=== PATIENT | female | born 1955 | race Caucasian/White ===

== ENCOUNTER → 2019-11-29 | Outpatient (CLI) | payer OTHER ==
[~2019-11-29] VITALS: Ht 172.7 cm; Wt 79.4 kg
[~2019-11-29] MED LIST: ADIPEX-P37.5 MG PO; CLIMARA1 EAC3 TRANSDERM; DYAZIDE 37.5-21 EACH PO; FIORINAL 50-321 EACH PO; FLONASE 0.05%50 MCG NARES; MOMETASONE FURO30 ML OTIC; OXYCONTIN40 MG PO; PROAIR HFA8.5 GM INH; PROTONIX40 M2 PO; SYNTHROID150 MCG PO
--- NOTE | 2019-11-30 10:13 | P ---
[facility] [place] [address] PROCEDURE REPORT Name: RAGHAV BARLOW Room #: REG [facility]#: [id number] Admission: 11/29/19 Attend Phys: Juan Ramon Rayo MD Discharge: Date of : 53 Report #: [id number] THIS REPORT FOR: //name// CC: Juan Ramon Ellis MD DATE OF SERVICE: 11/29/2019 BRIEF HISTORY: The patient is a 64-year-old woman for average risk screening colonoscopy. Last colonoscopy was about 12 years ago per her report. PREOPERATIVE DIAGNOSIS: Average risk screening colonoscopy. POSTOPERATIVE DIAGNOSES: 1. Colon polyps x 3. 2. Moderate sigmoid diverticulosis coli. 3. Small internal hemorrhoids. MEDICATIONS: Deep sedation with propofol per anesthesia. SPECIMENS: 1. Colon polyps x 2, mid transverse colon. 2. Polyp, distal transverse colon. ESTIMATED BLOOD LOSS: 3 mL. PROCEDURE: Colonoscopy to cecum and terminal ileum with snare polypectomy and biopsy. FINDINGS: Prior to propofol sedation, procedure of colonoscopy discussed with the patient as well as potential risks and its complications. She indicates she understands and desires to proceed. DESCRIPTION OF PROCEDURE: With the patient in left lateral decubitus position, digital examination was completed, which revealed no abnormalities. Subsequently, the Olympus video colonoscope was introduced in the rectum, advanced under direct vision to the cecum. Done with minimal difficulty. Cecum was identified by the ileocecal valve and the appendiceal orifice. I was able to visualize the distal segment of terminal ileum, which was inspected and noted to be unremarkable. At that point, the scope was slowly withdrawn and careful circumferential views are obtained. It is noted the patient does have chronic constipation, which has been a long-term stable problem. There were some limitations of prep; however, we were able to vigorously irrigate and suction and overall a good prep was obtained. As we withdrew the scope, the lumen of the colon, in particular proximally was diffusely dilated; however, no [facility] [address] [place] [address] PROCEDURE REPORT Name: ZEINAJESSIENOELLERAGHAV Miriam Room #: REG [facility].#: [id number] Admission: 11/29/19 Attend Phys: Juan Ramon Rayo MD Discharge: Date of : 53 Report #: [id number] obstructing lesions or strictures were seen. The dilation was consistent with chronic constipation. As we withdrew the scope, the mucosa was within normal limits, normal vascular pattern, normal light reflex. No abnormalities were noted until the mid transverse colon was reached, at which point a 5 mm flat polyp was seen and removed by cold snare polypectomy. At the same vicinity, a diminutive polyp was seen and removed with biopsy forceps. We withdrew the scope further and in the distal transverse colon, a diminutive polyp was seen and removed with biopsy forceps. Scope was further withdrawn and no additional neoplastic lesions were seen. The mucosa remained normal throughout the remainder of the exam. In the sigmoid colon, there was moderately severe diverticular disease without endoscopic evidence of diverticulitis. Scope was withdrawn in the rectum. Upon retroflexion, small hemorrhoids were seen. Scope was withdrawn. The patient tolerated the procedure well. CONDITION OF THE PATIENT UPON DISCHARGE: Following procedure, the patient drowsy, aroused, conversant and will be discharged home when fully ambulatory. INSTRUCTIONS TO THE PATIENT AND FAMILY AT THE TIME OF DISCHARGE: Three polyps were identified today. If all 3 are adenomas, she should return in 3 years, otherwise she will return in 5 years. She does have chronic constipation. It is noted that she does use OxyContin on a daily basis. This is likely contributing factor. She reports that MiraLax is not helpful. We will have her try Linzess 245 mcg daily. If needed, she may use MiraLax as well. She should follow up in the office with nurse practitioner in 6-8 weeks. <ELECTRONICALLY SIGNED> By: Juan Ramon Rayo MD 11/30/19 1013 [id number] [id number] Juan Ramon Rayo MD /nt
--- NOTE | 2019-11-30 10:13 | P ---
[facility] [place] [address] PROCEDURE REPORT Name: RAGHAV BARLOW Room #: REG [facility]#: [id number] Admission: 11/29/19 Attend Phys: Juan Ramon Rayo MD Discharge: Date of : 53 Report #: [id number] THIS REPORT FOR: //name// CC: Juan Ramon Ellis MD OUTPATIENT UPPER ENDOSCOPY REPORT BRIEF HISTORY: The patient is a 64-year-old woman with complaints of left upper quadrant abdominal pain. She also has chronic nausea with some vomiting. In addition, she reports she had nausea all the time. It is noted she does use OxyContin on a long-term on a daily basis. PREOPERATIVE DIAGNOSES: Abdominal pain, nausea. In addition to above, she also has solid food dysphagia. POSTOPERATIVE DIAGNOSES: 1. Grade B erosive esophagitis. 2. Small, less than 2 cm sliding type hiatus hernia. 3. Moderate diffuse antral gastritis without ulceration. MEDICATIONS: Deep sedation with propofol per anesthesia. SPECIMEN: Biopsies of gastritis. ESTIMATED BLOOD LOSS: 3 mL. PROCEDURE: EGD with biopsy, Brown dilation. FINDINGS: Prior to propofol sedation, procedure of upper endoscopy and dilation was reviewed with the patient as well potential risks, benefits, and complications. She indicates she understands and desires to proceed. DESCRIPTION OF PROCEDURE: With the patient in left lateral decubitus position, the Olympus video endoscope was inserted in cervical esophagus under direct vision without difficulty. Examination of this organ through its entire length revealed normal esophageal mucosa down the squamocolumnar junction. Squamocolumnar junction was inspected and she had erosions consistent with grade B erosive esophagitis. No strictures or masses were seen. A ring was not seen. She had a less than 2 cm sliding type hiatus hernia and mucosa hernia was unremarkable. The scope was advanced into the stomach, which was examined on end view as well as retroflexed views. There was a pattern of diffuse gastritis. There was bile scattered throughout the stomach, but a large amount of liquid was not seen in the stomach. Other than the gastritis, the stomach was unremarkable. There was no evidence of ulcers. Upon retroflexion, no mass lesions were seen. No retained solids or liquids were seen in the stomach. The [address] [address] PROCEDURE REPORT Name: RAGHAV BARLOW Room #: REG [facility].#: [id number] Admission: 11/29/19 Attend Phys: Juan Ramon Rayo MD Discharge: Date of : 53 Report #: [id number] pylorus was unremarkable. Duodenal bulb was unremarkable. Postbulbar duodenal sweep down to third portion was unremarkable. At that point, the scope was slowly withdrawn and careful circumferential views confirmed the above findings. The patient tolerated the procedure well. Biopsies obtained of the gastritis. Following procedure, she was dilated with passage of 50-[place] Brown dilator without resistance. INSTRUCTIONS TO THE PATIENT AND FAMILY AT THE TIME OF DISCHARGE: We will follow up on biopsies. She does use pantoprazole intermittently. We will have increased it to 40 mg twice daily. If she does well after 6-8 weeks, she may reduce to once daily and taper thereafter based on symptoms. Reduction use of narcotics may be helpful. We will have her use Zofran as well. If she does not have improvement of symptoms, she will return for followup in the office. Proceed with colonoscopy at this time. <ELECTRONICALLY SIGNED> By: Juan Ramon Rayo MD 11/30/19 1013 [id number] 1008 Juan Ramon Rayo MD /nt
--- NOTE | 2019-11-30 15:07 | PATH ---
[facility] [address] [address] [place] [address] PATHOLOGY RPT PROCEDURE Name: BUFFY BARLOW Room #: REG [facility].#: [id number] Admission: 11/29/19 Date of : 53 Discharge: Report #: [id number] Path Case #: [id number] [facility] Accession Number: [id number] . 01 Material submitted: . PART A: stomach - BIOPSY OF GASTRITIS PART B: colon - POLYP AT MID TRANSVERSE COLON X2. Modifiers: mid, transverse PART C: colon - POLYP AT DISTAL TRANSVERSE COLON. Modifiers: distal, transverse . 01 Clinical history: . Pre-OP DX: Dysphagia, screening Post-OP DX: Gastritis, esophagitis, small hiatal hernia, dysphagia, colon polyps, diverticulosis . 02 Diagnosis: A. Gastric mucosa, gastritis, endoscopic biopsy: - Mild reactive gastropathy. - Negative for intestinal metaplasia or atrophy. - Negative for Helicobacter pylori (properly controlled immunohistochemical stain performed). . B. Polyp x 2, at mid transverse colon, endoscopic biopsy: - Tubular adenoma, multiple fragments. - Negative for high grade dysplasia. . C. Polyp, at distal transverse colon, endoscopic biopsy: - Tubular adenoma. - Negative for high grade dysplasia. (IUV/db; 11/30/2019) LBQ 11/30/2019 1131 Local . 02 Electronically signed: . Myah Thornton MD, Pathologist NPI- [id number] . 01 Gross description: . A. Received in formalin labeled "Buffy Barlow, BX of gastritis," are 4 segments of yanes soft tissue measuring 1.3 x 0.6 x 0.2 cm in aggregate dimensions and ranging from 0.2 to 0.6 cm in maximum dimension. The specimen is submitted entirely in cassette A1. . B. Received in formalin labeled "Buffy Barlow, polyp at mid transverse colon x2," are 3 segments of yanes soft tissue measuring 0.7 x 0.6 x 0.2 cm in aggregate dimensions and ranging from 0.3 to 0.4 cm in maximum dimension. The specimen is submitted entirely in cassette B1. [address] [address] PATHOLOGY RPT PROCEDURE Name: BUFFY BARLOW Room #: REG [facility] ..#: [id number] Admission: 11/29/19 Date of : 53 Discharge: Report #: [id number] Path Case #: [id number] . C. Received in formalin labeled "Buffy Barlow, polyp at distal transverse colon," is a single segment of yanes soft tissue measuring 0.4 cm in maximum dimension. The specimen is entirely submitted in cassette C1. (TSD; 11/29/2019) TOB/TOB 11/29/2019 [facility] Local . 02 Pathologist provided ICD-10: K31.9, D12.3 . 02 CPT . 119444, 982975, 843017, L09104 Specimen Comment: A courtesy copy of this report has been sent to [phone], [phone] Specimen Comment: [phone] Specimen Comment: Report sent to / DR VALENTINE Performed at: [address], [place] [id number] MD Ronaldo Jensen MD Phone: [phone] Performed at: [address] [id number] MD Myah Thornton MD Phone: [phone]
== END | disposition home or self-care (01) ==
LOC: GI 10-25 13:10
DX: Z12.11 Encounter for screening for malignant neoplasm of colon (principal); D12.3 Benign neoplasm of transverse colon; K57.30 Diverticulosis of large intestine without perforation or abscess without bleeding; K64.8 Other hemorrhoids; K29.70 Gastritis, unspecified, without bleeding; K31.9 Disease of stomach and duodenum, unspecified; R13.10 Dysphagia, unspecified; K22.10 Ulcer of esophagus without bleeding; K44.9 Diaphragmatic hernia without obstruction or gangrene; J43.9 Emphysema, unspecified; F32.9 Major depressive disorder, single episode, unspecified; K21.9 Gastro-esophageal reflux disease without esophagitis; G43.909 Migraine, unspecified, not intractable, without status migrainosus; E03.9 Hypothyroidism, unspecified; Z98.890 Other specified postprocedural states; Z79.899 Other long term (current) drug therapy; Z90.710 Acquired absence of both cervix and uterus; Z87.891 Personal history of nicotine dependence; Z86.19 Personal history of other infectious and parasitic diseases; Z88.8 Allergy status to other drugs, medicaments and biological substances
CPT/HCPCS: 62110; 62900